=== PATIENT | male | born 1975 | race Caucasian/White ===

== ENCOUNTER 2017-10-31 10:48 | Emergency (ER) | payer OTHER ==
[~2017-10-31] VITALS: Ht 177.8 cm; Wt 86.2 kg
[2017-10-31] MEDS ORDERED: PROZAC20 MG (11:06)
[2017-10-31] MEDS ORDERED: AMBIEN5 MG (11:06)
[2017-10-31] MEDS ORDERED: IBUPROFEN800 MG PO (13:53)
== END 2017-10-31 14:10 | disposition home or self-care (01) ==
LOC: ER 10:48
DX: S52.592A Other fractures of lower end of left radius, initial encounter for closed fracture (principal); W18.39XA Other fall on same level, initial encounter; Y93.89 Activity, other specified; Y92.89 Other specified places as the place of occurrence of the external cause; Y99.8 Other external cause status